=== PATIENT | female | born 1945 | race Caucasian/White ===

== ENCOUNTER → 2016-07-17 | Outpatient (CLI) | payer MEDICARE, OTHER ==
[~2016-07-17] MED LIST: AMOXICILLIN 8751 TAB PO; CALCIUM500 MG PO; CARDI-OMEGA1000 MG PO; CIPRO 500MG TA500 MG PO; MUCINEX D1 TER PO; NASONEX SPRAY17 GM NS; ULTRAM 50MG TAB50 MG PO; [UNRECOGNIZED DRUG - REMARK] PO; [UNRECOGNIZED DRUG - REMARK] PO
== END ==
LOC: MC.RAD 08:40
DX: Z12.31 Encounter for screening mammogram for malignant neoplasm of breast (principal)

== ENCOUNTER → 2017-08-05 | Outpatient (CLI) | payer MEDICARE, OTHER | LOC: MC.RAD 10:40 | DX: Z12.31 Encounter for screening mammogram for malignant neoplasm of breast (principal); R92.8 Other abnormal and inconclusive findings on diagnostic imaging of breast ==

== ENCOUNTER → 2017-08-11 | Outpatient (CLI) | payer MEDICARE, OTHER | LOC: MC.RAD 12:42 | DX: N60.02 Solitary cyst of left breast (principal) ==

== ENCOUNTER → 2018-01-12 | Outpatient (CLI) | payer MEDICARE, OTHER | LOC: MC.RAD 08:29 | DX: N63.20 Unspecified lump in the left breast, unspecified quadrant (principal) ==

== ENCOUNTER 2018-04-09 07:22 | Observation (INO) | payer MEDICARE, OTHER ==
[~2018-04-09] VITALS: Ht 154.9 cm; Wt 61.9 kg
[~2018-04-09 07:22] MED LIST changes: +CALCIUM CARBON650 M2 PO; -CALCIUM500 MG PO
[2018-04-09] MEDS ORDERED: CRANBERRY500 M3 PO (07:37)
[2018-04-09] MEDS ORDERED: MUCINEX D1 TER PO (07:37)
[2018-04-09] MEDS ORDERED: FISH OIL 1000MG1 CAP PO (07:37)
[2018-04-09] MEDS ORDERED: VITAMIN D 1001000 IU (07:38)
[2018-04-09] MEDS ORDERED: FLONASEALLERGY NS (07:38)
[2018-04-09] MEDS ORDERED: AFRIN 15 ML15 ML NS (07:38)
[2018-04-09 07:51] LABS: BASO % 0.4 % (0.0-2.0); EOS # 0.1 (0.0-0.7); EOS % 0.5 % (0-4.0); GRAN # 8.5 (1.4-6.5); GRAN % 88.7 % (42.2-75.2); HEMATOCRIT 37.5 % (37.0-47.0); HEMOGLOBIN 13.1 g/dl (12.5-16.0); LYMPH # 0.6 (1.2-3.4); LYMPH % 6.4 % (20.0-51.0); MEAN CELL VOLUME 90 fl (80.0-100.0); MEAN CORPUSCULAR HEMOGLOBIN 32 pg (27.0-31.0); MEAN CORPUSCULAR HGB CONC 35 g/dl (33.0-37.0); MEAN PLATELET VOLUME 10.6 fl (7.4-10.4); MONO # 0.4 (0.1-0.6); MONO % 3.7 % (1.7-9.3); PLATELET COUNT 258 K/mm3 (130-400); RED BLOOD COUNT 4.15 M/mm3 (4.10-5.30); REDCELL DISTRIBUTION WIDTH-CV 13.1 % (11.5-14.5)
[2018-04-09 08:04] LABS: ALBUMIN 4.1 gm/dL (3.5-5.0); BILIRUBIN,TOTAL 0.5 mg/dL (0.0-1.0); CALCIUM 9.4 mg/dL (8.4-10.2); CREATININE, serum 0.67 mg/dL (0.52-1.25); POTASSIUM 3.9 mmol/L (3.4-5.0); TOTAL PROTEIN 7.4 gm/dL (6.4-8.2)
[2018-04-09 09:43] VITALS: BP 113/57; PULSE 71; TEMP 97.7
[2018-04-09] MEDS ORDERED: FOSAMAX 70MG TA70 MG PO (09:49)
[2018-04-09] MEDS ORDERED: PROBIOTIC ACID1 EAC3 PO (09:50)
[2018-04-09 10:09] LABS: COLLECTION METHOD CLEAN CATCH
[2018-04-09 10:25] LABS: MUCOUS Present /lpf; PH 7 (5-8); SQUAMOUS EPITHELIAL 0-2 /hpf; URINE APPEARANCE Clear; URINE BACTERIA None Seen /hpf; URINE BILIRUBIN Negative (NEGATIVE); URINE BLOOD Negative (NEGATIVE); URINE COLOR Straw; URINE GLUCOSE Negative (NEGATIVE); URINE KETONE Trace (NEGATIVE); URINE LEUKOCYTE ESTERASE Negative (NEGATIVE); URINE NITRATE Negative (NEGATIVE); URINE PROTEIN(semi-quant) Negative (NEGATIVE); URINE UROBILINOGEN Negative (NEGATIVE)
[2018-04-09 11:41] VITALS: BP 118/62; PULSE 69; TEMP 98.2
[2018-04-09 14:45] VITALS: BP 123/64; PULSE 80; TEMP 97.6
[2018-04-09 20:06] VITALS: BP 100/53; PULSE 83; TEMP 98
[2018-04-10 00:12] VITALS: BP 129/62; PULSE 77; TEMP 98.2
[2018-04-10 03:41] VITALS: BP 123/56; PULSE 76; TEMP 98.2
[2018-04-10 06:18] LABS: HEMATOCRIT 37.1 % (37.0-47.0); HEMOGLOBIN 12.1 g/dl (12.5-16.0); MEAN CORPUSCULAR HEMOGLOBIN 31 pg (27.0-31.0); MEAN CORPUSCULAR HGB CONC 33 g/dl (33.0-37.0); MEAN PLATELET VOLUME 10.9 fl (7.4-10.4); PLATELET COUNT 255 K/mm3 (130-400); RED BLOOD COUNT 3.88 M/mm3 (4.10-5.30); REDCELL DISTRIBUTION WIDTH-CV 13.4 % (11.5-14.5)
[2018-04-10 06:22] LABS: MEAN CELL VOLUME 96 fl (80.0-100.0)
[2018-04-10 06:37] LABS: ALBUMIN 3.5 gm/dL (3.5-5.0); BILIRUBIN,TOTAL 0.3 mg/dL (0.0-1.0); CALCIUM 8.2 mg/dL (8.4-10.2); CREATININE, serum 0.65 mg/dL (0.52-1.25); POTASSIUM 3.9 mmol/L (3.4-5.0); TOTAL PROTEIN 6.5 gm/dL (6.4-8.2)
[2018-04-10 06:47] LABS: BAND 2 % (0-10); LYMPHOCYTE 4 % (20.0-51.0); NEUTROPHILS 92 % (42.0-75.2); PLATELET ESTIMATE NORMAL (NORMAL)
[2018-04-10 07:17] VITALS: BP 111/57; PULSE 92; TEMP 99.8
[2018-04-10 11:36] VITALS: BP 107/50; PULSE 78; TEMP 98.3
[2018-04-10 15:56] VITALS: BP 110/53; PULSE 84; TEMP 98.4
== END 2018-04-10 16:45 | disposition home or self-care (01) ==
LOC: COL.ER 07:22 → SURG 08:56
PROVIDERS: Emergency Medicine; Surgery
DX: K56.609 Unspecified intestinal obstruction, unspecified as to partial versus complete obstruction (principal); R19.7 Diarrhea, unspecified; K92.1 Melena; Z88.5 Allergy status to narcotic agent; Z23 Encounter for immunization; Z87.440 Personal history of urinary (tract) infections
CPT/HCPCS: G0008; G0378; J1170; J2270; J2405; J3010; J7030; Q9967

== ENCOUNTER 2018-04-15 02:46 | Inpatient (IN) | payer MEDICARE, OTHER ==
[~2018-04-15] VITALS: Ht 157.5 cm; Wt 60.5 kg
[~2018-04-15 02:46] MED LIST changes: +AFRIN 15 ML15 ML NS; +CRANBERRY500 M3 PO; +FISH OIL 1000MG1 CAP PO; +FLONASEALLERGY NS; +FOSAMAX 70MG TA70 MG PO; +PROBIOTIC ACID1 EAC3 PO; +VITAMIN D 1001000 IU
[2018-04-15 04:04] LABS: BASO % 0.3 % (0.0-2.0); EOS # 0.1 (0.0-0.7); EOS % 0.8 % (0-4.0); GRAN # 8.8 (1.4-6.5); GRAN % 84.8 % (42.2-75.2); HEMOGLOBIN 12.3 g/dl (12.5-16.0); LYMPH # 0.8 (1.2-3.4); LYMPH % 7.2 % (20.0-51.0); MEAN CELL VOLUME 92 fl (80.0-100.0); MEAN CORPUSCULAR HEMOGLOBIN 31 pg (27.0-31.0); MEAN CORPUSCULAR HGB CONC 34 g/dl (33.0-37.0); MONO # 0.7 (0.1-0.6); MONO % 6.7 % (1.7-9.3); PLATELET COUNT 242 K/mm3 (130-400); RED BLOOD COUNT 3.93 M/mm3 (4.10-5.30); REDCELL DISTRIBUTION WIDTH-CV 13.2 % (11.5-14.5)
[2018-04-15 04:25] LABS: HEMATOCRIT 36.3 % (37.0-47.0)
[2018-04-15 04:26] LABS: ALBUMIN 4.2 gm/dL (3.5-5.0); BILIRUBIN,TOTAL 0.6 mg/dL (0.0-1.0); C-REACTIVE PROTEIN 1.4 mg/dL (0.0-0.9); CALCIUM 10.1 mg/dL (8.4-10.2); CREATININE, serum 0.82 mg/dL (0.52-1.25); POTASSIUM 3.8 mmol/L (3.4-5.0); TOTAL PROTEIN 7.2 gm/dL (6.4-8.2)
[2018-04-15 04:54] LABS: COLLECTION METHOD CLEAN CATCH
[2018-04-15 05:02] LABS: AMORPHOUS CRYSTAL Present /uL; PH 6 (5-8); SQUAMOUS EPITHELIAL 0-2 /hpf; URINE APPEARANCE Clear; URINE BACTERIA None Seen /hpf; URINE BILIRUBIN Negative (NEGATIVE); URINE BLOOD Negative (NEGATIVE); URINE COLOR Yellow; URINE GLUCOSE Negative (NEGATIVE); URINE KETONE Trace (NEGATIVE); URINE LEUKOCYTE ESTERASE Trace (NEGATIVE); URINE NITRATE Negative (NEGATIVE); URINE PROTEIN(semi-quant) Negative (NEGATIVE); URINE RBC 0-2 /hpf; URINE UROBILINOGEN Negative (NEGATIVE)
[2018-04-15 08:46] VITALS: BP 128/58; PULSE 66; TEMP 98.2
[2018-04-15 11:58] VITALS: BP 103/51; PULSE 78; TEMP 98
[2018-04-15 16:00] VITALS: BP 117/60; PULSE 72; TEMP 98.3
[2018-04-15 20:00] VITALS: BP 121/53; PULSE 72; TEMP 98.6
[2018-04-16] VITALS: BP 115/55; PULSE 85; TEMP 98
[2018-04-16 04:00] VITALS: BP 125/50; PULSE 72; TEMP 98
[2018-04-16 06:19] LABS: BASO % 0.4 % (0.0-2.0); EOS # 0.1 (0.0-0.7); EOS % 1.7 % (0-4.0); GRAN # 5.1 (1.4-6.5); GRAN % 72.1 % (42.2-75.2); LYMPH # 1.2 (1.2-3.4); LYMPH % 16.8 % (20.0-51.0); MEAN CELL VOLUME 94 fl (80.0-100.0); MEAN CORPUSCULAR HGB CONC 33 g/dl (33.0-37.0); MEAN PLATELET VOLUME 11.4 fl (7.4-10.4); MONO # 0.6 (0.1-0.6); MONO % 8.7 % (1.7-9.3); PLATELET COUNT 204 K/mm3 (130-400); RED BLOOD COUNT 3.24 M/mm3 (4.10-5.30); REDCELL DISTRIBUTION WIDTH-CV 13.4 % (11.5-14.5)
[2018-04-16 06:27] LABS: HEMATOCRIT 30.6 % (37.0-47.0); HEMOGLOBIN 10.2 g/dl (12.5-16.0); MEAN CORPUSCULAR HEMOGLOBIN 31 pg (27.0-31.0)
[2018-04-16 06:31] LABS: ALBUMIN 3.1 gm/dL (3.5-5.0); BILIRUBIN,TOTAL 0.5 mg/dL (0.0-1.0); CALCIUM 8.3 mg/dL (8.4-10.2); CREATININE, serum 0.7 mg/dL (0.52-1.25); POTASSIUM 3.2 mmol/L (3.4-5.0); TOTAL PROTEIN 5.9 gm/dL (6.4-8.2)
[2018-04-16 08:00] VITALS: BP 115/51; PULSE 68; TEMP 97.8
[2018-04-16 16:13] VITALS: BP 107/31; PULSE 70; TEMP 97.9
[2018-04-16 20:24] VITALS: BP 113/45; PULSE 75; TEMP 97.8
[2018-04-16 23:43] VITALS: BP 129/63; PULSE 72; TEMP 99.2
[2018-04-17 03:45] VITALS: BP 119/59; PULSE 73; TEMP 98.4
[2018-04-17 06:17] LABS: BASO % 0.6 % (0.0-2.0); EOS # 0.3 (0.0-0.7); EOS % 4.7 % (0-4.0); GRAN # 4.7 (1.4-6.5); GRAN % 66.5 % (42.2-75.2); HEMOGLOBIN 10.3 g/dl (12.5-16.0); LYMPH # 1.3 (1.2-3.4); LYMPH % 18.2 % (20.0-51.0); MEAN CELL VOLUME 93 fl (80.0-100.0); MEAN CORPUSCULAR HEMOGLOBIN 31 pg (27.0-31.0); MEAN CORPUSCULAR HGB CONC 34 g/dl (33.0-37.0); MEAN PLATELET VOLUME 11.4 fl (7.4-10.4); MONO # 0.7 (0.1-0.6); MONO % 9.7 % (1.7-9.3); PLATELET COUNT 193 K/mm3 (130-400); RED BLOOD COUNT 3.28 M/mm3 (4.10-5.30); REDCELL DISTRIBUTION WIDTH-CV 13.3 % (11.5-14.5)
[2018-04-17 06:22] LABS: HEMATOCRIT 30.4 % (37.0-47.0)
[2018-04-17 06:34] LABS: CALCIUM 8.3 mg/dL (8.4-10.2); CREATININE, serum 0.69 mg/dL (0.52-1.25); POTASSIUM 3.3 mmol/L (3.4-5.0)
[2018-04-17 07:30] VITALS: BP 132/57; PULSE 70; TEMP 97.7
[2018-04-17] MEDS ORDERED: CIPRO 500MG TA500 MG PO (09:09)
[2018-04-17] MEDS ORDERED: FLAGYL500 MG PO (09:10)
== END 2018-04-17 11:19 | disposition home or self-care (01) | DRG 392 ==
LOC: COL.ER 02:46 → SURG 05:12 → EDBEDREQ 06:41 → SURG 08:51 → MEDICAL 04-16 19:01
PROVIDERS: Emergency Medicine; Surgery
DX: K52.89 Other specified noninfective gastroenteritis and colitis (principal); R73.9 Hyperglycemia, unspecified
CPT/HCPCS: J0744; J1170; J2405; J7030; J7120; Q9967

== ENCOUNTER 2018-05-19 21:04 | Inpatient (IN) | payer MEDICARE, OTHER ==
[~2018-05-19] VITALS: Ht 154.9 cm; Wt 55.0 kg
[~2018-05-19 21:04] MED LIST changes: +FLAGYL500 MG PO
[2018-05-19 21:38] LABS: COLLECTION METHOD CLEAN CATCH
[2018-05-19 21:38] LABS: BASO # 0.1 (0.0-0.2); BASO % 0.7 % (0.0-2.0); EOS # 0.2 (0.0-0.7); EOS % 1.7 % (0-4.0); GRAN # 7.8 (1.4-6.5); GRAN % 79.2 % (42.2-75.2); HEMATOCRIT 38.5 % (37.0-47.0); HEMOGLOBIN 13.2 g/dl (12.5-16.0); LYMPH # 1.2 (1.2-3.4); LYMPH % 12.2 % (20.0-51.0); MEAN CELL VOLUME 92 fl (80.0-100.0); MEAN CORPUSCULAR HEMOGLOBIN 32 pg (27.0-31.0); MEAN CORPUSCULAR HGB CONC 34 g/dl (33.0-37.0); MEAN PLATELET VOLUME 10.4 fl (7.4-10.4); MONO # 0.6 (0.1-0.6); PLATELET COUNT 254 K/mm3 (130-400); RED BLOOD COUNT 4.18 M/mm3 (4.10-5.30)
[2018-05-19 21:44] LABS: PH 5 (5-8); SQUAMOUS EPITHELIAL 0-2 /hpf; URINE APPEARANCE Cloudy; URINE BACTERIA None Seen /hpf; URINE BILIRUBIN Negative (NEGATIVE); URINE BLOOD Negative (NEGATIVE); URINE COLOR Yellow; URINE GLUCOSE Negative (NEGATIVE); URINE KETONE Negative (NEGATIVE); URINE LEUKOCYTE ESTERASE 2+ (NEGATIVE); URINE NITRATE Negative (NEGATIVE); URINE PROTEIN(semi-quant) Negative (NEGATIVE); URINE UROBILINOGEN Negative (NEGATIVE)
[2018-05-19 22:01] LABS: ALANINE AMINOTRANSFERASE 36 U/L (9-52); ALBUMIN 4.3 gm/dL (3.5-5.0); ALKALINE PHOSPHATASE 29 U/L (50-136); ANION GAP 7 mmol/L (7-16); AST,SGOT 23 U/L (15-37); BILIRUBIN,TOTAL 0.4 mg/dL (0.0-1.0); BLOOD UREA NITROGEN 15 mg/dL (7-17); C-REACTIVE PROTEIN < 0.5 mg/dL (0.0-0.9); CARBON DIOXIDE 29 mmol/L (22-30); CHLORIDE 102 mmol/L (98-107); CREATININE, serum 0.86 mg/dL (0.52-1.25); GLUCOSE 116 mg/dL (74-106); LIPASE 54 U/L (23-300); POTASSIUM 4.1 mmol/L (3.4-5.0); SODIUM 138 mmol/L (137-145); TOTAL PROTEIN 7.5 gm/dL (6.4-8.2)
[2018-05-19 22:10] LABS: TROPONIN-I < 0.012 ng/mL (0.000-0.034)
[2018-05-20] VITALS (395 sets, daily range): BP systolic 116–137; BP diastolic 59–77; PULSE 69–87; TEMP 97.5–99.2; O2SAT 88–100
[2018-05-20] MEDS ORDERED: OMEGA-3 1000 MG1 CAP PO (03:15)
[2018-05-20] MEDS ORDERED: PROBIOTIC FORMU1 CAP PO (03:18)
[2018-05-20] MEDS ORDERED: CALCIUM CARBON650 M2 PO (03:19)
[2018-05-20] MEDS ORDERED: GLUCOSAMINE/CHO1 CA4 PO (03:19)
[2018-05-20] MEDS ORDERED: VITAMIN D 400400 IU PO (03:20)
[2018-05-20] MEDS ORDERED: CRANBERRY PO (03:23)
[2018-05-20] MEDS ORDERED: D MANNOSE PO (03:23)
[2018-05-21] VITALS (13 sets, daily range): BP systolic 90–135; BP diastolic 40–76; PULSE 70–94; TEMP 97.5–98.7; O2SAT 91–92
[2018-05-21 10:08] LABS: BASO % 0.2 % (0.0-2.0); EOS % 0.3 % (0-4.0); GRAN # 8.9 (1.4-6.5); GRAN % 87.8 % (42.2-75.2); HEMATOCRIT 38.5 % (37.0-47.0); LYMPH # 0.5 (1.2-3.4); LYMPH % 5.3 % (20.0-51.0); MEAN CELL VOLUME 92 fl (80.0-100.0); MEAN CORPUSCULAR HEMOGLOBIN 31 pg (27.0-31.0); MEAN CORPUSCULAR HGB CONC 34 g/dl (33.0-37.0); MEAN PLATELET VOLUME 10.4 fl (7.4-10.4); MONO # 0.6 (0.1-0.6); PLATELET COUNT 243 K/mm3 (130-400); RED BLOOD COUNT 4.18 M/mm3 (4.10-5.30); REDCELL DISTRIBUTION WIDTH-CV 13.2 % (11.5-14.5)
[2018-05-21 10:19] LABS: ALBUMIN 3.7 gm/dL (3.5-5.0); CALCIUM 8.4 mg/dL (8.4-10.2); CREATININE, serum 0.6 mg/dL (0.52-1.25); PHOSPHOROUS 3.2 mg/dL (2.5-4.5); POTASSIUM 4.1 mmol/L (3.4-5.0)
[2018-05-22] VITALS (9 sets, daily range): BP systolic 99–150; BP diastolic 43–75; PULSE 88–95; TEMP 98–98.7
[2018-05-22 06:17] LABS: BASO % 0.2 % (0.0-2.0); GRAN % 89.3 % (42.2-75.2); HEMOGLOBIN 11.7 g/dl (12.5-16.0); LYMPH # 0.4 (1.2-3.4); LYMPH % 2.8 % (20.0-51.0); MEAN CELL VOLUME 93 fl (80.0-100.0); MEAN CORPUSCULAR HEMOGLOBIN 32 pg (27.0-31.0); MEAN CORPUSCULAR HGB CONC 34 g/dl (33.0-37.0); MEAN PLATELET VOLUME 11.3 fl (7.4-10.4); MONO # 0.9 (0.1-0.6); MONO % 7.5 % (1.7-9.3); PLATELET COUNT 232 K/mm3 (130-400); RED BLOOD COUNT 3.71 M/mm3 (4.10-5.30); REDCELL DISTRIBUTION WIDTH-CV 13.2 % (11.5-14.5)
[2018-05-22 06:18] LABS: HEMATOCRIT 34.4 % (37.0-47.0)
[2018-05-22 06:28] LABS: ALBUMIN 2.9 gm/dL (3.5-5.0); CALCIUM 8.2 mg/dL (8.4-10.2); CREATININE, serum 0.67 mg/dL (0.52-1.25); PHOSPHOROUS 3.2 mg/dL (2.5-4.5); POTASSIUM 4.1 mmol/L (3.4-5.0)
[2018-05-23 04:19] VITALS: BP 151/67; PULSE 94; TEMP 98.8
[2018-05-23 06:05] LABS: HEMOGLOBIN 10.7 g/dl (12.5-16.0); MEAN CELL VOLUME 93 fl (80.0-100.0); MEAN CORPUSCULAR HEMOGLOBIN 31 pg (27.0-31.0); MEAN CORPUSCULAR HGB CONC 34 g/dl (33.0-37.0); MEAN PLATELET VOLUME 10.7 fl (7.4-10.4); PLATELET COUNT 223 K/mm3 (130-400); RED BLOOD COUNT 3.45 M/mm3 (4.10-5.30); REDCELL DISTRIBUTION WIDTH-CV 13.6 % (11.5-14.5)
[2018-05-23 06:12] LABS: HEMATOCRIT 31.9 % (37.0-47.0)
[2018-05-23 06:17] LABS: ALBUMIN 2.8 gm/dL (3.5-5.0); CALCIUM 8.3 mg/dL (8.4-10.2); CREATININE, serum 0.64 mg/dL (0.52-1.25); PHOSPHOROUS 2.6 mg/dL (2.5-4.5)
[2018-05-23 08:42] VITALS: BP 125/47; BP 125/57; PULSE 86; TEMP 97.8
[2018-05-23 08:49] LABS: BAND 14 % (0-10); LYMPHOCYTE 4 % (20.0-51.0); NEUTROPHILS 80 % (42.0-75.2)
[2018-05-23 08:50] LABS: PLATELET ESTIMATE NORMAL (NORMAL)
[2018-05-23 12:43] VITALS: BP 134/60; PULSE 97; TEMP 99
[2018-05-23 16:29] VITALS: BP 137/58; PULSE 89; TEMP 98.2
[2018-05-23 19:32] VITALS: BP 132/67; PULSE 92; TEMP 98.1
[2018-05-23 23:55] VITALS: BP 147/65; PULSE 96; TEMP 98.2
[2018-05-24] VITALS (9 sets, daily range): BP systolic 117–142; BP diastolic 56–74; PULSE 78–89; TEMP 97.9–98.4
[2018-05-24 06:54] LABS: HEMOGLOBIN 10.2 g/dl (12.5-16.0)
[2018-05-24 06:57] LABS: HEMATOCRIT 29.9 % (37.0-47.0)
[2018-05-25 03:14] VITALS: BP 142/78; PULSE 85; TEMP 98.2
[2018-05-25 07:53] VITALS: BP 139/74; PULSE 85; TEMP 97.8
[2018-05-25 11:28] VITALS: BP 136/61; PULSE 80; TEMP 98.9
[2018-05-25 16:40] VITALS: BP 124/65; PULSE 80; TEMP 97.6
[2018-05-25 20:40] VITALS: BP 115/67; PULSE 80; TEMP 98
[2018-05-26 00:11] VITALS: BP 135/65; PULSE 81; TEMP 98.9
[2018-05-26 03:48] VITALS: BP 137/76; PULSE 82; TEMP 98.1
[2018-05-26 06:28] LABS: HEMOGLOBIN 10.8 g/dl (12.5-16.0); MEAN CELL VOLUME 90 fl (80.0-100.0); MEAN CORPUSCULAR HEMOGLOBIN 31 pg (27.0-31.0); MEAN CORPUSCULAR HGB CONC 35 g/dl (33.0-37.0); MEAN PLATELET VOLUME 10.6 fl (7.4-10.4); PLATELET COUNT 289 K/mm3 (130-400); RED BLOOD COUNT 3.47 M/mm3 (4.10-5.30); REDCELL DISTRIBUTION WIDTH-CV 13.2 % (11.5-14.5)
[2018-05-26 06:36] LABS: HEMATOCRIT 31.2 % (37.0-47.0)
[2018-05-26 06:45] LABS: ALBUMIN 2.7 gm/dL (3.5-5.0); BILIRUBIN,TOTAL 1.1 mg/dL (0.0-1.0); CREATININE, serum 0.5 mg/dL (0.52-1.25); POTASSIUM 3.1 mmol/L (3.4-5.0); TOTAL PROTEIN 5.5 gm/dL (6.4-8.2)
[2018-05-26 07:18] LABS: BAND 3 % (0-10); EOSINOPHIL 3 % (0-4); LYMPHOCYTE 12 % (20.0-51.0); NEUTROPHILS 81 % (42.0-75.2); PLATELET ESTIMATE NORMAL (NORMAL)
[2018-05-26 10:30] VITALS: BP 137/63; PULSE 80; TEMP 97.9
[2018-05-26 11:20] VITALS: BP 133/66; PULSE 77; TEMP 98.2
[2018-05-26] MEDS ORDERED: STOOL SOFTENER100 M2 PO (14:55)
[2018-05-26] MEDS ORDERED: NORCO 325 MG-51 TAB PO (14:55)
== END 2018-05-26 16:35 | disposition home or self-care (01) | DRG 330 ==
LOC: COL.ER 21:04 → SURG 23:03 → ICU 23:03 → SURG 05-21 08:00
PROVIDERS: Emergency Medicine; Surgery
PROC: 0DTF0ZZ Resection of Right Large Intestine, Open Approach (ICD-10-PCS; principal; 2018-05-21 15:45)
PROC: 0WJP4ZZ Inspection of Gastrointestinal Tract, Percutaneous Endoscopic Approach (ICD-10-PCS; 2018-05-21 15:45)
DX: K56.1 Intussusception (principal); N39.0 Urinary tract infection, site not specified; E87.1 Hypo-osmolality and hyponatremia; R91.8 Other nonspecific abnormal finding of lung field
CPT/HCPCS: A4314; A9284; C1765; G0378; J0690; J0694; J0696; J1100; J1170; J1650; J1885; J2250; J2405; J2550; J2704; J2765; J2795; J3010; J7030; J7120; Q9967

== ENCOUNTER → 2018-08-18 | Outpatient (CLI) | payer MEDICARE, OTHER ==
[~2018-08-18] MED LIST changes: +CRANBERRY PO; +D MANNOSE PO; +GLUCOSAMINE/CHO1 CA4 PO; +NORCO 325 MG-51 TAB PO; +OMEGA-3 1000 MG1 CAP PO; +PROBIOTIC FORMU1 CAP PO; +STOOL SOFTENER100 M2 PO; +VITAMIN D 400400 IU PO
== END ==
LOC: MC.RAD 11:35
DX: Z12.31 Encounter for screening mammogram for malignant neoplasm of breast (principal)

== ENCOUNTER → 2019-09-07 | Outpatient (CLI) | payer MEDICARE, OTHER ==
[~2019-09-07] MED LIST changes: +OMNICEF 300MG300 MG PO; +ZYRTEC 10MG10 MG PO
== END ==
LOC: MC.RAD 09:30
DX: Z12.31 Encounter for screening mammogram for malignant neoplasm of breast (principal)

== ENCOUNTER 2020-05-16 05:30 | Day surgery (SDC) | payer MEDICARE, OTHER ==
[~2020-05-16] VITALS: Ht 157.5 cm; Wt 62.0 kg
[2020-05-16 05:54] VITALS: BP 115/65; PULSE 60; TEMP 98.1
[2020-05-16] MEDS ORDERED: OSTEO-BI-FLEX 21 TAB PO (06:03)
[2020-05-16] MEDS ORDERED: ONE-A-DAY ESSE1 EACH PO (06:03)
[2020-05-16] MEDS ORDERED: AZO-CRANBERRY450 MG PO (06:04)
[2020-05-16 06:20] LABS: BASO # 0.1 (0.0-0.2); BASO % 1.2 % (0.0-2.0); EOS # 0.3 (0.0-0.7); EOS % 5.9 % (0-4.0); GRAN # 2.7 (1.4-6.5); GRAN % 54.5 % (42.2-75.2); HEMATOCRIT 39.3 % (37.0-47.0); HEMOGLOBIN 13.4 g/dl (12.5-16.0); LYMPH # 1.4 (1.2-3.4); LYMPH % 28.4 % (20.0-51.0); MEAN CELL VOLUME 92 fl (80.0-100.0); MEAN CORPUSCULAR HEMOGLOBIN 31 pg (27.0-31.0); MEAN CORPUSCULAR HGB CONC 34 g/dl (33.0-37.0); MEAN PLATELET VOLUME 10.5 fl (7.4-10.4); MONO # 0.5 (0.1-0.6); MONO % 9.8 % (1.7-9.3); PLATELET COUNT 247 K/mm3 (130-400); RED BLOOD COUNT 4.27 M/mm3 (4.10-5.30); REDCELL DISTRIBUTION WIDTH-CV 13.1 % (11.5-14.5)
[2020-05-16 06:32] LABS: CALCIUM 9.4 mg/dL (8.4-10.2); CREATININE, serum 0.85 (0.52-1.25); POTASSIUM 4.2 mmol/L (3.4-5.0)
[2020-05-16] MEDS ORDERED: NORCO 325 MG-51 TAB PO (09:55)
[2020-05-16] MEDS ORDERED: MOTRIN 600600 MG/TAB PO (09:55)
[2020-05-16] MEDS ORDERED: COLACE 100100 MG/CAP PO (09:56)
[2020-05-16 10:20] VITALS: BP 105/65; PULSE 67; TEMP 97.8
--- NOTE | 2020-05-16 10:20 | NUR ---
The patient arrived back to [facility] from the recovery room at this time. The patient appears alert and oriented and denies any pain or nausea at this time. The patient incisions to her abdomen and left clavicle appear without redness or edema and are covered with surgical glue. Post operative vital signs were started at this time. The patient agrees to try some water at this time. Call light is within reach. Will continue to monitor the patient.
[2020-05-16 10:35] VITALS: BP 105/55; PULSE 60
--- NOTE | 2020-05-16 10:35 | NUR ---
The patient appears to be tolerating the water well. The patient agrees to try some wheat toast at this time. Post operative vital signs appear stable. The patient's is at her bedside. Call light remains within reach. Will continue to monitor the patient.
[2020-05-16 10:50] VITALS: BP 100/44; PULSE 65
--- NOTE | 2020-05-16 10:50 | NUR ---
The patient appears to be tolerating the toast well. The patient continues to report minimal pain at this time. The patient's is at her bedside at this time. Will continue to monitor the patient.
[2020-05-16 11:05] VITALS: BP 100/54; PULSE 69
--- NOTE | 2020-05-16 11:05 | NUR ---
The patient was given a PRN dose of [place] one tab for continued pain relief with movement and upon discharge. Will continue to monitor the patient.
[2020-05-16 11:25] VITALS: BP 100/50; PULSE 70
--- NOTE | 2020-05-16 11:25 | NUR ---
The patient ambulated to the bathroom with the stand by assistance of one nurse and appeared to tolerate the activity well. The patient voided without difficulty. The nurse instructed the patient to get dressed and notify the staff when she is ready to review her discharge paperwork.
--- NOTE | 2020-05-16 11:35 | NUR ---
Discharge instructions were reviewed with the patient and her at this time. They both verbalized understanding and have no questions for the nurse at this time. The patient is dressed and ready to be escorted out. The patient's IV to her left wrist was removed and a pressure dressing was applied to the site.
--- NOTE | 2020-05-16 11:45 | NUR ---
The patient was escorted out via wheelchair to a private vehicle by VINNY Sidhu. The patient's belongings and discharge paperwork were sent with her. The patient's is present to drive her home.
== END 2020-05-16 11:45 | disposition home or self-care (01) ==
LOC: SDCO 05:30
PROVIDERS: Surgery
DX: K43.9 Ventral hernia without obstruction or gangrene (principal); D17.0 Benign lipomatous neoplasm of skin and subcutaneous tissue of head, face and neck; Z20.828 Contact with and (suspected) exposure to other viral communicable diseases; Z88.5 Allergy status to narcotic agent; Z88.8 Allergy status to other drugs, medicaments and biological substances; Z79.899 Other long term (current) drug therapy; Z90.49 Acquired absence of other specified parts of digestive tract; Z91.040 Latex allergy status
CPT/HCPCS: C1781; J0690; J1100; J1885; J2405; J2704; J3010; J7120

== ENCOUNTER → 2020-09-08 | Outpatient (CLI) | payer MEDICARE, OTHER ==
[~2020-09-08] MED LIST changes: +AZO-CRANBERRY450 MG PO; +COLACE 100100 MG/CAP PO; +MOTRIN 600600 MG/TAB PO; +ONE-A-DAY ESSE1 EACH PO; +OSTEO-BI-FLEX 21 TAB PO
== END ==
LOC: MC.RAD 11:15
DX: Z12.31 Encounter for screening mammogram for malignant neoplasm of breast (principal)

== ENCOUNTER → 2021-09-25 | Outpatient (CLI) | payer MEDICARE, OTHER | LOC: MC.RAD 07:52 | DX: Z12.31 Encounter for screening mammogram for malignant neoplasm of breast (principal); Z00.00 Encounter for general adult medical examination without abnormal findings ==

== ENCOUNTER → 2023-12-11 | Outpatient (CLI) | payer MEDICARE | LOC: MC.RAD 10:06 | DX: Z12.31 Encounter for screening mammogram for malignant neoplasm of breast (principal) ==